=== PATIENT | male | born 1990 | race Caucasian/White ===

== ENCOUNTER 2017-12-04 02:46 | Emergency (ER) | payer OTHER ==
[~2017-12-04] VITALS: Ht 175.3 cm; Wt 95.3 kg
[2017-12-04 03:06] VITALS: BP 136/91
[2017-12-04] MEDS ORDERED: PATANOL5 ML OPH (03:07)
[2017-12-04] MEDS ORDERED: POLYTRIM EYE DR10 ML OPH (03:07)
--- NOTE | 2017-12-04 03:07 | ED EYE COMPLAINT ---
History of Present Illness General Chief Complaint: Eye Problems Stated Complaint: ? PINK EYE PER PT "SON HAS IT" ITCHY/WATERY Source: patient Exam Limitations: no limitations Vital Signs & Intake/Output Vital Signs & Intake/Output Vital Signs Date Time Temp Pulse Resp B/P B/P Pulse O2 O2 Flow FiO2 Mean Ox Delivery Rate 12/04 0306 97.7 84 18 136/91 97 Allergies Uncoded Allergies: Allergy Other NONE Med Allergies NONE Reconcile Medications Olopatadine HCl (Patanol) 0.1 % DROPS 1 GTT OPH TID PRN itchy eyes Polytrim (Polytrim Eye Drops) 10,000 UNIT-1 MG/ML DROPS 2 GTT OPH Q6 conjunctivitis x 7 days Triage Nurses Notes Reviewed? yes Onset: Gradual Duration: day(s): Timing: recent history Injury Environment: home Severity: mild Left Eye Associated Symptoms: burning, itching Right Eye Associated Symptoms: burning, itching HPI: 27 yo gentleman presents with 1 day history of itching, tearing eyes with mostly clear discharge. "My kid had the same thing... now I have it, but it's worse." He notes no fever, chills, rash, cough. He is otherwise well. Past History Travel History Traveled to [place] past 21 day No Medical History Any Pertinent Medical History? see below for history Surgical History Surgical History: none Psychosocial History What is your primary language Beninese Family History Hx Contributory? No Review of Systems Review of Systems Constitutional: Reports: no symptoms. Eyes: Reports: no symptoms. Ear: Reports: no symptoms. Nose: Reports: no symptoms. Mouth: Reports: no symptoms. Throat: Reports: no symptoms. Respiratory: Reports: no symptoms. Cardiovascular: Reports: no symptoms. GI: Reports: no symptoms. Genitourinary: Reports: no symptoms. Musculoskeletal: Reports: no symptoms. Skin: Reports: no symptoms. Neurological/Psychological: Reports: no symptoms. Hematologic/Endocrine: Reports: no symptoms. Immunologic/Allergic: Reports: no symptoms. All Other Systems: Reviewed and Negative Physical Exam General Appearance: well developed/nourished, mild distress General Inspection: normal inspection Eyelid: normal inspection, everted for exam Conjunctiva/Sclera: injected Cornea: normal inspection EOM: intact Pupil: normal accommodation, normal pupil, PERRL General Inspection: normal inspection Eyelid: normal inspection, everted for exam Conjunctiva/Sclera: normal inspection, small amount of purulent discharge visualized Cornea: normal inspection EOM: intact Pupil: normal accommodation, normal pupil, PERRL Physical Exam Head: atraumatic Nose: normal inspection Mouth/Throat: normal mouth inspection Neck: normal inspection, supple Progress Differential Diagnosis: conjunctivitis Plan of Care: pt feels better with application of tetracaine. polytrim for likely surperimposed bacteral component... patanol for symptomatic relief. pt encouraged to follow up with the telecommunications specialist if not improving. Departure Departure Disposition: HOME OR SELF CARE Condition: Stable Clinical Impression Primary Impression: Conjunctivitis Referrals: Satya GIBSON,Miguel Hawk (PCP/Family) Departure Forms: Customer Survey General Discharge Information Prescriptions: Current Visit Scripts Polytrim (Polytrim Eye Drops) 2 GTT OPH Q6 #20 ML x 7 days Olopatadine HCl (Patanol) 1 GTT OPH TID PRN itchy eyes #5 ML
== END 2017-12-04 03:12 ==
LOC: ERH 02:46
DX: H10.9 Unspecified conjunctivitis (principal)